=== PATIENT | female | born 1970 | race Caucasian/White ===

== ENCOUNTER 2021-08-12 06:35 | Emergency (ER) | payer MEDICAID ==
[~2021-08-12] VITALS: Ht 157.5 cm; Wt 59.0 kg
[2021-08-12 06:39] VITALS: BP 169/75
--- NOTE | 2021-08-12 06:39 | NUR ---
Dr. Blanc examining patient.
--- NOTE | 2021-08-12 06:40 | NUR ---
PT [facility]. TAKEN TO BED 6
--- NOTE | 2021-08-12 06:40 | NUR ---
PATIENT PRESENTS TO ED WITH AMS . NO N/V/D PER EMS. SKIN IS NORMAL FOR ETHNICITY/WARM/DRY. PT IS ALERT AND ALTERED UNABLE TO DETERMINE GAIT D/T AMS; RRE/U UNABLE TO ASSESS LUNGS SOUNDS D/T PT BEHAVIOR OF KICKING HITTING AND ATTEMPTS TO BITE STAFFL HR EVEN AND REGULAR AT 101;NO SOB NOTED PT SPEAKING IN FULL SENTENCES YELLING, CURSING AND SCREAMING. NO COUGH HEARD AT THIS TIME.NO S/SX OF PAIN AT THIS TIME; VS WITHIN DEFINED LIMITS; PATIENT POSITIONED FOR COMFORT 4-PT HARD RESTRAINTS ORDERED AND PUT IN PLACE WITH EXPLAINATION OF CRITERIA FOR REMOVAL; HOB ELEVATED LESS THAN 30 DEGRESS; BEDRAILS UP X2; BED IN LOW POSITION. ER MD AWARE OF PT STATUS AND AT BEDSIDE DURING OFFLOADING OF EMS GURNEY.
[2021-08-12] MEDS ORDERED: OLANZapine 10 MG VIAL IM ONE ×2 (06:41→06:45)
[2021-08-12] MEDS ORDERED: LORazepam 2 MG/ML VIAL ONE (06:42)
[2021-08-12] MEDS ORDERED: WATER STERILE 10 ML MC ONE (06:44)
[2021-08-12] MEDS ORDERED: LORazepam 2 MG/ML VIAL IM ONE (06:45)
--- NOTE | 2021-08-12 06:57 | NUR ---
PATIENT AGRESSIVE, SHOUTING, YELLING PROFANITIES AND SLURS.
--- NOTE | 2021-08-12 07:20 | NUR ---
PT QUIET, SLEEPING IN BED. RESTRAINTS REMOVED AT THIS TIME. DR YEUNG MADE AWARE.
--- NOTE | 2021-08-12 08:00 | NUR ---
RECEIVED PT REPORT FROM GIAN APARICIO. PT IS SEDATED. RESTING COMFORTABLY IN BED 6 WITH NO SIGNS OF DISTRESS. RESTRAINTS HAVE ALREADY BEEN REMOVED. PLACED ON MONITOR, VS WNL WITH EVEN AN UNLABORED BREATHING. WILL CONINTUE TO MONITOR.
--- NOTE | 2021-08-12 12:00 | NUR ---
RESTING COMFORTABLY ON THE MONITOR WITH VS WNL, EVEN AND UNLABORED BREATHING. NO DISTRESS AT THIS TIME. FOOD TRY OFFERED. PANTS GIVEN. WILL CONTINUE TO MONITOR
[2021-08-12 13:00] VITALS: BP 11/64
--- NOTE | 2021-08-12 14:07 | NUR ---
PT DISCHARGED WITH VITALS STABLE. PT REFUSED TO SIGN DISCHARGE PAPERWORK REGARDING BIPOLAR 1 DISORDER. PT PROVIDED HOMELESS PACKET, FOOD, APPROPRIATE CLOTHES, AND BUS PASS. PT REFUSED TO SIGN HOMELESS WAIVER AND LEFT CURSING AT STAFF. REFUSED TO TAKE BUS PASS AND RESOURCES
== END 2021-08-12 14:07 | disposition home or self-care (01) ==
LOC: MED 06:35
DX: F31.9 Bipolar disorder, unspecified (principal); F15.90 Other stimulant use, unspecified, uncomplicated
CPT/HCPCS: 96372; 99291; J2060; J3490